=== PATIENT | female | born 1990 | race Caucasian/White ===

== ENCOUNTER 2017-12-23 12:05 | Inpatient (IN) ==
[2017-12-23] MEDS ORDERED: DiphenhydrAMINE 25 MG CAPSULE PO PRN (12:10)
[2017-12-23 12:31] VITALS: BMI 38.0
[2017-12-23] MEDS: ACETAMINOPHEN 500 MG TABLET PO PRN ×2 (12:56→19:36)
--- NOTE | 2017-12-23 13:26 | Ultrasound Report ---
Indication: decreased movement PROCEDURE: US OB BPP wo non-stress: Encounter: Initial Comparison: None. Indication: decreased movement TECHNIQUE: A routine biophysical profile was performed over a 30-minute scanning time protocol. FINDINGS: There is a single intrauterine gestation in the cephalic presentation. Gross movement and cardiac activity are present with the heart rate averaging 146 beats per minute. The placenta is anterior. The four-quadrant MARYANNE is 8.5. A nuchal cord is noted. The SD ratio of the umbilical cord is 3.2. BIOPHYSICAL PROFILE FINDINGS: breathing motion score: 2 movement score: 0 tone score: 0 Amniotic fluid index score: 2 Total biophysical profile score: 4 IMPRESSION: Nuchal umbilical cord is noted. The biophysical profile score is 4 out of a possible score of 8 maximum. .
[2017-12-23] MEDS ORDERED: ZOLPIDEM 5 MG TABLET PO PRN (14:30)
[2017-12-23] MEDS ORDERED: HYDROCODONE/APAP 5mg/325mg TABLET PO PRN (14:30)
[2017-12-23] MEDS ORDERED: SALINE FLUSH 10ml SYRINGE IV PRN (14:30)
[2017-12-23] MEDS ORDERED: METHYLERGONOVINE 0.2 MG/ML INJECTION IM PRN (21:09)
[2017-12-23] MEDS ORDERED: MAG-AL + SIM ORAL LIQUID 30ml PO PRN (21:09)
[2017-12-23] MEDS ORDERED: LIDOCAINE 1% (10mg/ml) 2mL INJ PF SDV ID PRN (21:09)
[2017-12-23] MEDS ORDERED: CALCIUM CARBONATE Chewable 500mg TABLET PO PRN (21:09)
[2017-12-23] MEDS ORDERED: CARBOPROST 250 MCG/ML INJECTION IM PRN (21:09)
[2017-12-24] MEDS: LR 1,000 ML IV PRN ×2 (04:16→08:07)
[2017-12-24] MEDS: OXYTOCIN DRIP 30 UNIT/500 ML ML IV PRN ×2 (04:17→15:24)
[2017-12-24] MEDS: D5LR 1,000 ML IV PRN ×2 (04:17→13:38)
[2017-12-24] MEDS ORDERED: ONDANSETRON ODT 4 MG TABLET PO PRN (04:51)
[2017-12-24] MEDS ORDERED: ONDANSETRON 4 MG/2 ML INJECTION IVP PRN (08:01)
[2017-12-24] MEDS ORDERED: ROPIVACAINE 1% 10MG/ML INJ 200 MG, SUFentanil 50 MCG in NS 100 ML EPI PRN (08:01)
[2017-12-24] MEDS ORDERED: NALOXONE 0.4 MG/ML INJECTION IVP PRN (08:01)
[2017-12-24] MEDS ORDERED: DiphenhydrAMINE 50 MG/ML INJECTION IVP PRN (08:01)
--- NOTE | 2017-12-24 08:01 | Anesthesia Preoperative Report ---
Anesthesia Epidural/Spinal Rec - Date and Time Date: 12/24/17 Procedure: Labor Epidural Plan: Epidural - Vital Signs NPO since: 399 /Para: P:0 - Medictaions & Allergies Inpatient Medications: Current Medications Acetaminophen (Tylenol) 650 mg PO Q6HR PRN PRN Reason: Pain Last Admin: 12/23/17 19:36 Dose: 650 mg Hydrocodone Bitart/Acetaminophen ([place] 5/325) 1 - 2 tab PO Q4H PRN PRN Reason: Pain Al Hydroxide/Mg Hydroxide (Maalox Plus) 30 ml PO Q3H PRN PRN Reason: Indigestion Calcium Carbonate (Tums) 500 - 1,000 mg PO Q2H PRN PRN Reason: Indigestion Carboprost Tromethamine (Hemabate) 250 mcg IM O PRN PRN Reason: .Downtime Diphenhydramine HCl (Benadryl) 50 mg PO Q4H PRN PRN Reason: Itching Last Admin: 12/23/17 18:16 Dose: 50 mg Dextrose/Lactated Ringer's (Dextrose 5%-Lactated Ringers) 1,000 mls @ 125 mls/ hr IV .Q8H PRN PRN Reason: Labor Last Admin: 12/24/17 04:17 Dose: 125 mls/hr Oxytocin (Pitocin Drip) 30 unit in 500 mls @ 2 mls/hr IV .Q24H PRN; Protocol PRN Reason: Induction/Augmentation Last Admin: 12/24/17 04:17 Dose: 2 mls/hr Lactated Ringer's (Lactated Ringers) 1,000 mls @ 999 mls/hr IV .Q1H1M PRN Last Admin: 12/24/17 04:16 Dose: 999 mls/hr Lidocaine HCl (Xylocaine-Mpf 1% Vial) 0.2 mg ID O PRN PRN Reason: IV Start Methylergonovine Maleate (Methergine) 0.2 mg IM O PRN Misoprostol (Cytotec) 800 mcg AK ONCE PRN Ondansetron HCl (Zofran Odt Tablet) 4 mg PO Q4H PRN PRN Reason: Nausea &/or vomiting Last Admin: 12/24/17 04:59 Dose: 4 mg Sodium Chloride (Iv Flush) 10 - 80 ml IV PRN PRN PRN Reason: Flushing Zolpidem Tartrate (Ambien) 5 mg PO O PRN PRN Reason: Insomnia Allergies/Adverse Reactions: Allergies Allergy/AdvReac Type Severity Reaction Status Date / Time aripiprazole Allergy Unknown Verified 12/23/17 12:37 latex Allergy Unknown Rash Verified 12/23/17 12:37 - Home Medications Home Medications: Home Medications Medication Instructions Recorded Confirmed Type Albuterol Sulfate (Albuterol 2 puff INH Q6H PRN #0 inhaler 06/19/14 12/23/17 History Sulfate Hfa) Acetaminophen [Tylenol] 325 - 1,000 mg PO Q4-6HPRN PRN 12/23/17 12/23/17 History Pnv No.95/Ferrous Fum/Folic AC 1 each PO DAILY 12/23/17 12/23/17 History [ Tablet] - Medical History Respiratory: Reports: Asthma (has inhaler) Gastrointestional: Reports: Morbid Obesity, Other (Diaphram hernia repair at 1 day old) Neuro/Musculoskeletal: Reports: Back Problems (Spondylolisthesis) Other History: Reports: Now - Surgical History HEENT Surgeries: Reports: Tonsillectomy (as a child) Anesthesia Reactions: None Hx Family Anesthesia Reaction: No History of Motion Sickness: No - Social History Smoking Status: Never smoker Second Hand Exposure: No Substance Use Type: does not use Alcohol Intake Frequency: does not drink - Pertinent Findings Lab Data: CBC and BMP 12/23/17 12:21 12/23/17 12:21 BMP 12/23/17 12:21 Sodium 142 Potassium 4.1 Chloride 109 H Carbon Dioxide 22 BUN 9.0 Creatinine 0.5 L Glucose 84 Calcium 9.3 Liver Function 12/23/17 Range/Units 12:21 Total Bilirubin 0.30 (0.20-1.30) MG/DL AST 21 (14-36) U/L ALT 18 (1-35) U/L Alkaline Phosphatase 129 H (38-126) U/L Albumin 3.7 (3.5-5.0) g/dL - Physical Exam Respiratory Exam: lungs clear, bilateral breath sounds equal Cardiovascular Exam: regular rate and rhythm - Airway Assessment Mallampati Score: II TMD: 3 Fingerbreadths Neck Extension: fair Overall Assessment: no airway concerns - ASA ASA Score: 3 - Discussion Discussion: Discussed risks/options/alternatives of anesthesia and questions answered. Patient consents. Nursing pain assessment noted. Anesthesia Discussion: other Attestation Statement: Prior to the delivery of any anesthetic medication, I examined the patient, developed the plan, obtained the patient's consent and discussed the risk and benefits of the procedure with the patient/guardian.
[2017-12-24] MEDS ORDERED: MORPHINE SULFATE PF 5mg/10ml INJ (Duramorph) ONE (09:52)
[2017-12-24] MEDS ORDERED: FentaNYL 250 MCG/5 ML INJECTION ONE (09:53)
[2017-12-24] MEDS ORDERED: SALINE FLUSH 10ml SYRINGE ONE (10:06)
--- NOTE | 2017-12-24 14:56 | OB/GYN Procedure Note ---
Delivery date: 12/24/17 Events: Labor Induction (Non reasuring testing) Induction method: per pitocin protocol Delivery augmentation: rupture of membranes Delivery monitor: external FHT, internal uterine Route of delivery: Laceration description: Vaginal - 2nd Degree Delivery repair: vicryl Anesthesia type: Epidural Disposition: floor - [place] Baby 1 Infant gender: Female presentation: Vertex Placenta delivery description: Spontaneous cord vessel description: 3 Vessels at 1 minute: 6 at 5 minutes: 7
[2017-12-24] MEDS ORDERED: CALCIUM CARBONATE Chewable 500mg TABLET PO PRN (14:57)
[2017-12-24] MEDS ORDERED: HYDROCORTISONE 2.5% CREAM 30gm RECTALLY PRN (14:57)
[2017-12-24] MEDS ORDERED: ACETAMINOPHEN 500 MG TABLET PO PRN (14:57)
[2017-12-24] MEDS ORDERED: DiphenhydrAMINE 25 MG CAPSULE PO PRN (14:57)
[2017-12-24] MEDS ORDERED: MAG-AL + SIM ORAL LIQUID 30ml PO PRN (14:57)
[2017-12-24] MEDS: IBUPROFEN 800 MG TABLET PO PRN (16:35)
[2017-12-24 19:06] VITALS: O2SAT 98
[2017-12-25] MEDS: IBUPROFEN 800 MG TABLET PO PRN ×2 (03:32→15:21)
[2017-12-25] MEDS: DOCUSATE CALCIUM 240 MG CAPSULE PO SCH (09:54)
--- NOTE | 2017-12-25 10:44 | Labor and Delivery Note ---
DATE OF DELIVERY 12/24/2017 Normal spontaneous vaginal delivery of a live female infant named Marylu in the OA position over intact perineum with epidural anesthesia. There was no meconium noted. There was a nuchal cord x 2 that was reduced at the perineum. There was a spontaneous delivery of placenta with a three-vessel cord and a second-degree vaginal laceration and bilateral first-degree periurethrals. Estimated blood loss was 300 mL. The patient was a G1, P0 induced at 37 weeks gestational age for nonreassuring testing at term. She had a 4 out of 8 biophysical profile. She received 2 points for breathing and 2 points for fluid, 2 off for tone and movement. She had NST that was reactive and gave her a total of 6 out of 10 biophysical profile but due to she was term, the decision was made to proceed with induction of labor. She was noted to be 150 and ballotable at admission. She underwent cervical ripening with a Cho bulb balloon and then a Pitocin induction. Amniotomy was performed and clear fluid was noted. She progressed slowly from 3 cm after cervical ripening to 6 cm, taking approximately eight hours. Got to a maximum of 26 on Pitocin and then progressed rapidly from 6 cm to complete over the next two hours. She pushed for approximately 15 minutes prior to delivery. No antepartum complications were noted during the procedure. [place]
--- NOTE | 2017-12-25 11:26 | OB/GYN Progress Note ---
OB-PP Progress Note - General PPD1 Maternal Group B Strep: Negative Maternal blood type: O+ Maternal Rubella Status: Immune - Subjective Date: 12/25/17 Lochia: Minimal Pain: controlled Voiding: voiding Nausea or Vomiting Present: No - Objective Vital Signs: Last Vital Signs Temp 97.9 F 12/25/17 07:38 Pulse 79 12/25/17 07:38 Resp 16 12/25/17 07:38 BP 105/66 12/25/17 07:38 Pulse Ox 98 12/25/17 07:38 General: alert and oriented Abdomen: fundus firm, non-tender Extremities: non-tender Side: bilateral Site: ankle Edema Degree: 1+ - Assessment Assessment: SP, - Plan Plan: routine care Expected date of discharge: 12/26/17
[2017-12-26 00:08] VITALS: RESP 16
[2017-12-26] MEDS: IBUPROFEN 800 MG TABLET PO PRN ×2 (00:21→08:15)
[2017-12-26] MEDS: DOCUSATE CALCIUM 240 MG CAPSULE PO SCH (08:15)
[2017-12-26 13:27] VITALS: BP 112/65; PULSE 78; TEMP 98.2
== END 2017-12-26 13:10 | disposition home or self-care (01) | DRG 775 ==
LOC: OBOBS 12:06 → MC 12:06
PROVIDERS: ADMIT Obstetrics & Gynecology; ATTEND Obstetrics & Gynecology